=== PATIENT | female | born 1970 | race Caucasian/White ===

== ENCOUNTER 2023-07-27 07:11 | Day surgery (SDC) | payer BC ==
[2023-07-26 09:08] LABS: Absolute Eosinophils 0.1 K/uL (0-0.5); Absolute Lymphocytes (CBC) 1.7 K/uL (0.7-4.9); Absolute Monocytes 0.3 K/uL (0.1-1.3); Absolute Neutrophil 2.6 K/uL (1.8-8.0); Basophils % 0.7 % (0-1.3); Eosinophils % 1.8 % (0-4.4); Hematocrit 45.1 % (36.0-45.0); Hemoglobin 14.8 g/dL (12.0-15.0); MCH 30.5 pg (27.0-35.0); MCHC 32.8 g/dL (32.0-36.0); MPV 7.8 fL (7.6-11.3); Neutrophils % 54.5 % (41.7-73.7); Platelets 274 thou/uL (152-406); RBC Red Blood Cell Count 4.85 M/uL (3.86-4.86); Red Cell Distribution Width 13.2 % (12.1-15.2)
[2023-07-27] MEDS: Ringers Lactate 1,000 ML IV ONE (07:35)
[2023-07-27] MEDS: GLYCOPYRROLATE 0.2 MG/ML SYR ONE (07:40)
[2023-07-27 08:17] VITALS: O2SAT 100
[2023-07-27] MEDS ORDERED: GLYCOPYRROLATE 0.2 MG/ML SYR ONE (08:18)
[2023-07-27] MEDS ORDERED: LIDOCAINE 1% MPF 5 ML VIAL ONE (08:48)
[2023-07-27] MEDS ORDERED: propofoL 200 MG/20 ML VIAL IV ONE ×2 (08:48→08:49)
[2023-07-27 10:57] VITALS: BP 49/91; TEMP 97.6
--- NOTE | 2023-07-29 13:35 | EKG ---
Test Date: 2023-07-26 Test Time: 08:57:16 Infrastructure Software Engineer: SREEDHAR MEASUREMENT RESULTS: Intervals: Rate: 56 WY: 146 QRSD: 80 QT: 414 QTc: 399 [place]: P: 44 WY: 146 QRS: 37 T: 66 INTERPRETIVE STATEMENTS: Sinus bradycardia Otherwise normal ECG No previous ECG available for comparison Electronically Signed On 07-29-23 13:28:38 CDT by Miquel Jacobo
== END 2023-07-27 10:22 | disposition home or self-care (01) ==
LOC: OR 07:11
PROVIDERS: ATTEND Surgery
PROC: 0DBP8ZX Excision of Rectum, Via Natural or Artificial Opening Endoscopic, Diagnostic (ICD-10-PCS; 2023-07-27)
PROC: 0DBL8ZX Excision of Transverse Colon, Via Natural or Artificial Opening Endoscopic, Diagnostic (ICD-10-PCS; 2023-07-27)
PROC: 0DBN8ZX Excision of Sigmoid Colon, Via Natural or Artificial Opening Endoscopic, Diagnostic (ICD-10-PCS; principal; 2023-07-27 08:45)
DX: Z12.11 Encounter for screening for malignant neoplasm of colon (principal); K63.5 Polyp of colon
CPT/HCPCS: 93005; 85025; 80048; 36415; 88305; 45380; J2704 ×2; J2001; J7120